=== PATIENT | female | born 1935 | race Caucasian/White ===

== ENCOUNTER → 2017-01-27 | Outpatient (CLI) | payer OTHER ==
[~2017-01-27] MED LIST: FMR25 PO; INDA1TAB3 PO; LISI5TAB3 PO; PROP80TA2 PO; SIMV20TA2 PO
[2017-01-27 12:46] LABS: ESTIMATED AVERAGE GLUCOSE 137 mg/dl; HA1C FLAG Normal (Normal)
[2017-01-27 12:58] LABS: BLOOD UREA NITROGEN 26 mg/dl (7-18); BUN/CREATININE RATIO 28.2 (10-20); CARBON DIOXIDE 33 mmol/L (21-32); CHLORIDE 102 mmol/L (98-107); CHOLESTEROL 141 mg/dl (0-200); CREATININE 0.93 mg/dl (0.60-1.20); GLUCOSE 108 mg/dl (70-99); POTASSIUM 3.9 mmol/L (3.5-5.1); SODIUM 141 mmol/L (136-145); TRIGLYCERIDES 125 mg/dl (0-150); VERY LOW DENSITY LIPOPROT CALC 25 mg/dl
[2017-01-27 12:59] LABS: CALCIUM 10.5 mg/dl (8.5-10.1)
[2017-01-27 13:02] LABS: CHOLESTEROL/HDL RATIO 2.8; HDL CHOLESTEROL 50 mg/dl; LDL CHOLESTEROL CALCULATED 66 mg/dl
== END | disposition home or self-care (01) ==
LOC: C.LABPVFM 08:03
PROVIDERS: ATTEND Family Medicine
DX: E78.5 Hyperlipidemia, unspecified (principal); E11.65 Type 2 diabetes mellitus with hyperglycemia; I10 Essential (primary) hypertension

== ENCOUNTER → 2017-04-07 | Outpatient (CLI) | payer OTHER ==
--- NOTE | 2017-04-07 15:42 | MAMMOGRAPHY REPORT ---
UNILATERAL RIGHT DIGITAL SCREENING MAMMOGRAM TOMOSYNTHESIS WITH CAD: 04/07/2017 CLINICAL HISTORY: Asymptomatic. Personal history of breast cancer. TECHNIQUE: Right breast tomosynthesis in addition to standard 2D mammography was performed. Current jesus bradford was also evaluated with a Computer Aided Detection (CAD) system. COMPARISON: Comparison is made to exams dated: 04/05/2016 mammogram, 04/03/2015 mammogram, 04/01/2014 m ammogram, 03/29/2013 mammogram, 03/28/2012 mammogram, and 03/26/2011 mammogram - [facility]. BREAST COMPOSITION: The tissue of the right breast is extremely dense, which lowers the sensitivity of mammography. FINDINGS: There are numerous benign rim calcifications in the right breast. Stable groupings of punc urena microcalcifications in the medial right breast. Stable nodularity of the right parenchyma. No new suspicious mass, architectural distortion or cluster of microcalcifications is seen. IMPRESSION: ACR BI-RADS CATEGORY 1: NEGATIVE There is no mammographic evidence of malignancy. A 1 year screening mammogram is recommended. The pa tient will receive written notification of the results. Approximately 10% of breast cancers are not detected with mammography. A negative mammographic report should not delay biopsy if a clinically suggestive mass is present. Darlene Leong M.D. ay/:04/07/2017 15:12:02 Supervisor Soakers: Gabriella MACARIO(R)(M), [facility] letter sent: Normal 1/2 BI-RADS Code: ACR BI-RADS Category 1: Negative
== END | disposition home or self-care (01) ==
LOC: C.MAMM 08:32
PROVIDERS: ATTEND Family Medicine
DX: Z12.31 Encounter for screening mammogram for malignant neoplasm of breast (principal); Z90.12 Acquired absence of left breast and nipple; Z85.3 Personal history of malignant neoplasm of breast

== ENCOUNTER → 2017-06-10 | Outpatient (CLI) | payer OTHER ==
[2017-06-10 13:18] LABS: ESTIMATED AVERAGE GLUCOSE 134 mg/dl; HA1C FLAG Normal (Normal)
[2017-06-10 13:39] LABS: BLOOD UREA NITROGEN 20 mg/dl (7-18); BUN/CREATININE RATIO 19.9 (10-20); CALCIUM 9.6 mg/dl (8.5-10.1); CARBON DIOXIDE 32 mmol/L (21-32); CHLORIDE 99 mmol/L (98-107); CREATININE 0.98 mg/dl (0.60-1.20); GLUCOSE 112 mg/dl (70-99); POTASSIUM 4.3 mmol/L (3.5-5.1); SODIUM 138 mmol/L (136-145)
== END | disposition home or self-care (01) ==
LOC: C.LABPVFM 09:58
PROVIDERS: ATTEND Family Medicine
DX: I10 Essential (primary) hypertension (principal); E11.9 Type 2 diabetes mellitus without complications

== ENCOUNTER → 2017-06-14 | Outpatient (CLI) | payer OTHER ==
--- NOTE | 2017-06-22 07:20 | CODING QUERY MEDICAL NECESSITY ---
SUPPORTING DIAGNOSIS NEEDED Dr. Caballero, A supporting diagnosis is required for the test/procedure performed on this patient in order for us to be reimbursed by the patient's insurance. Please provide a supporting diagnosis for the following test/procedure listed below next to the test name along with your signature. *If there is no additional diagnosis for this patient that would support the following test/procedure please document that below next to the test/procedure. Test(s)/Procedure(s) that require a supporting diagnosis: * ([id number]) VITAMIN D ASSAY DIAGNOSIS: * ([id number]) B12 VITAMIN LEVEL DIAGNOSIS: DATE OF SERVICE: 06/14/17 Provider Signature: Date: Thank you [facility] Information Management Once completed, please kindly fax back to [phone] For questions please call [phone]
== END | disposition home or self-care (01) ==
LOC: C.LABPVFM 15:45
PROVIDERS: ATTEND Family Medicine
DX: R25.2 Cramp and spasm (principal); M79.1 Myalgia; E55.9 Vitamin D deficiency, unspecified

== ENCOUNTER → 2017-10-06 | Outpatient (CLI) | payer OTHER ==
[2017-10-06 12:59] LABS: BLOOD UREA NITROGEN 21 mg/dl (7-18); BUN/CREATININE RATIO 23.6 (10-20); CALCIUM 9.7 mg/dl (8.5-10.1); CARBON DIOXIDE 30 mmol/L (21-32); CHLORIDE 99 mmol/L (98-107); CHOLESTEROL 145 mg/dl (0-200); CREATININE 0.88 mg/dl (0.60-1.20); EstGFR CKD-E AfrAm 71.4; EstGFR CKD-E NON AfrAm 61.6; POTASSIUM 3.9 mmol/L (3.5-5.1); SODIUM 136 mmol/L (136-145)
[2017-10-06 12:59] LABS: GLUCOSE 106 mg/dl (70-99)
[2017-10-06 13:02] LABS: CHOLESTEROL/HDL RATIO 2.8; HDL CHOLESTEROL 51 mg/dl; LDL CHOLESTEROL CALCULATED 58 mg/dl; TRIGLYCERIDES 180 mg/dl (0-150); VERY LOW DENSITY LIPOPROT CALC 36 mg/dl
[2017-10-06 13:03] LABS: ESTIMATED AVERAGE GLUCOSE 137 mg/dl; HA1C FLAG Normal (Normal)
[2017-10-06 13:03] LABS: HEMOGLOBIN A1C 6.4 % (4.5-5.6)
[2017-10-06 13:43] LABS: VITAMIN B12** 1107 pg/mL (211-911)
== END | disposition home or self-care (01) ==
LOC: C.LABPVFM 09:57
DX: M81.0 Age-related osteoporosis without current pathological fracture (principal); E78.5 Hyperlipidemia, unspecified; E11.9 Type 2 diabetes mellitus without complications; R25.2 Cramp and spasm

== ENCOUNTER → 2018-04-06 | Outpatient (CLI) | payer OTHER ==
[2018-04-06 13:39] LABS: HEMOGLOBIN A1C 6.4 % (4.5-5.6)
[2018-04-06 13:53] LABS: BLOOD UREA NITROGEN 24 mg/dl (7-18); CALCIUM 9.3 mg/dl (8.5-10.1); CARBON DIOXIDE 31 mmol/L (21-32); CREATININE 0.98 mg/dl (0.60-1.20); GLUCOSE 104 mg/dl (70-99); SODIUM 139 mmol/L (136-145); TOTAL PROTEIN 7.6 gm/dl (6.4-8.2)
[2018-04-06 13:54] LABS: ALKALINE PHOSPHATASE 34 U/L (45-117); ALT/SGPT 31 U/L (12-78); AST/SGOT 23 U/L (15-37); CHOLESTEROL 131 mg/dl (0-200); LDL CHOLESTEROL CALCULATED 46 mg/dl
== END | disposition home or self-care (01) ==
LOC: C.LABPVFM 08:26
PROVIDERS: ATTEND Nurse Practitioner Family
DX: I10 Essential (primary) hypertension (principal); E78.5 Hyperlipidemia, unspecified

== ENCOUNTER → 2018-04-10 | Outpatient (CLI) | payer OTHER ==
--- NOTE | 2018-04-11 07:31 | MAMMOGRAPHY REPORT ---
UNILATERAL RIGHT DIGITAL SCREENING MAMMOGRAM TOMOSYNTHESIS WITH CAD: 04/10/2018 CLINICAL HISTORY: Asymptomatic. Personal history of breast cancer. TECHNIQUE: The study was acquired using full field digital technology and interpreted from soft copy. Breast tomosynthesis in addition to standard 2D mammography was performed. Current study was also ev aluated with a Computer Aided Detection (CAD) system. COMPARISON: Comparison is made to exams dated: 04/07/2017 mammogram, 04/05/2016 mammogram, 04/03/2015 m ammogram, 04/01/2014 mammogram, 03/29/2013 mammogram, and 03/28/2012 mammogram - [facility]. BREAST COMPOSITION: The tissue of right breast is extremely dense, which lowers the sensitivity of ma mmography. FINDINGS: There are diffuse benign rim calcifications, scattered and grouped punctate microcalcificat ions and vascular calcification within the right breast. Stable focal asymmetry in the lower inner m iddle one third of the right breast. No obvious new mass, architectural distortion or cluster of micr ocalcifications is seen. IMPRESSION: ACR BI-RADS CATEGORY 1: NEGATIVE There is no mammographic evidence of malignancy. A 1 year screening mammogram is recommended.( [id number]) The patient will receive written notification of the results. Some breast cancers are not detected with mammography. A negative mammographic report should not vadim y biopsy if a clinically suggestive mass is present. Darlene Leong M.D. ay/:04/10/2018 16:15:18 Carpet Floor Layer Apprentice: RT Darlene(Eligio)(M), [facility] letter sent: Normal 1/2 BI-RADS Code: ACR BI-RADS Category 1: Negative
== END | disposition home or self-care (01) ==
LOC: C.MAMM 10:19
PROVIDERS: ATTEND Nurse Practitioner Family
DX: Z12.31 Encounter for screening mammogram for malignant neoplasm of breast (principal); Z85.3 Personal history of malignant neoplasm of breast; M85.851 Other specified disorders of bone density and structure, right thigh; M85.852 Other specified disorders of bone density and structure, left thigh; M81.0 Age-related osteoporosis without current pathological fracture